=== PATIENT | male | born 1965 | race Caucasian/White ===

== ENCOUNTER → 2022-12-24 10:05 | Outpatient (BNVA) | payer MEDICAID, SELFPAY | PROVIDERS: PCP Family Medicine; Visit Provider Family Medicine | DX: R03.0 Elevated blood-pressure reading, without diagnosis of hypertension (principal) | CPT/HCPCS: 80053; 80061; 83036; 84439; 84443; 85007; 85025 ==

== ENCOUNTER 2023-02-11 10:07 | Day surgery (SDC) | payer MEDICAID, SELFPAY ==
[2023-02-11] VITALS (10 sets, daily range): BP systolic 125–165; BP diastolic 79–102; PULSE 78–129; RESP 14–16; TEMP 36.1–37.1; O2SAT 94–98
--- NOTE | 2023-02-11 10:50 | W.PM.OPSUD ---
Surgery/Procedure H&P Update DATE OF PROCEDURE: February 11, 2023 DATE H&P PERFORMED: 01/19/23 H&P UPDATE INFORMATION: I have reviewed H&P completed within last 30 days, I have examined patient prior to procedure and No changes to prior documentation PLANNED PROCEDURE: Operation Date: 02/11/23 13:45 Proposed Procedures p [id number] Laporoscopic left inguinal hernia with mesh K40.90(Left) - Juan José Valerio DO
[2023-02-11] MEDS: sodium chloride 0.9% 1,000 ML 30 ML IV (11:00)
[2023-02-11] MEDS: midazolam 1 mg/mL INJ 2 mL 2 MG IVP (11:15)
--- NOTE | 2023-02-11 11:32 | ANES.PREANE2 ---
Pre-Anesthetic Assessment Height/Weight: Height 1.83 m Weight 98.43 kg Temp Pulse Resp BP Pulse Ox O2 Del Method 98.7 F 82 16 158/102 98 Room Air 02/11/23 10:20 02/11/23 10:20 02/11/23 10:20 02/11/23 10:20 02/11/23 10:20 02/11/23 10:29 Operation Date: 02/11/23 13:45 Proposed Procedures p [id number] Laporoscopic left inguinal hernia with mesh K40.90(Left) - Juan José Valerio DO Familial anesthetic complications: None Was Beta Freedom taken within 24 hours: N/A Was Clonidine taken within 24 hours: N/A Last intake: Intake Last Liquid Date 02/10/23 Last Liquid Time 22:00 Last Solid Date 02/10/23 Last Solid Time 20:00 Social No alcohol and No tobacco Exam alert, oriented x 3, clear to auscultation bilaterally and regular rate & rhythm Airway Mallampati: Class II Dentition: false Anesthetic Plan ASA status: 2 Anesthesia: General Risk of > 500 ml blood loss (7ml/kg in children): No Medications/Allergies Home Medications Medication Instructions Recorded Confirmed Last Taken Type fluconazole 200 mg tablet 200 mg PO DAILY #42 tabs 01/04/23 02/10/23 02/10/23 Rx (Diflucan) Allergies Allergy/AdvReac Type Severity Reaction Status Date / Time egg Allergy Intermediate ADR-Vomitin Verified 02/10/23 13:56 g chicken derived AdvReac Intermediate ADR-Vomitin Verified 02/10/23 13:56 g Current Medications Generic Name Dose Route Start Last Admin Trade Name Freq PRN Reason Stop Dose Admin Sodium Chloride 1,000 mls @ 30 mls/hr 02/11/23 08:30 02/11/23 11:00 Sodium Chloride 0.9% IV 02/12/23 08:29 30 mls/hr .Q24H MEHDI Administration Midazolam HCl 2 mg 02/11/23 08:19 02/11/23 11:15 Midazolam 1 Mg/Ml Inj 2 Ml IVP 2 mg Q5M PRN Administration Preop Anxiety PFSH Anesthesia Medical History Chemical pneumonitis Surgical History History of tonsillectomy and adenoidectomy Family History Other CAD (coronary artery disease) Hypertension Lung disease Denies family history of Diabetes Clotting disorder Dementia Hyperlipidemia Psychiatric illness Chronic kidney disease (CKD) Anesthesia complication Bleeding disorder Cancer Stroke Social History Smoking and tobacco status: never smoked Alcohol intake: never Substance/Drug Use: never Lives independently: Yes Marital status: Number of children: 5 Current occupational status: employed Current occupation: [employer] Adrienne/L[employer] Day: Sabianism Special adrienne needs: No Agree to transfusion: Yes Data Anesthesia Cardiac Studies: No Data to Display
[2023-02-11] MEDS: ceFAZolin 2,000 MG in sodium chloride 0.9% (plus) 50 ML 100 MG IV (12:22)
[2023-02-11] MEDS: lidocaine-epi 2% 20 mL INJ INJECTION (12:51)
--- NOTE | 2023-02-11 13:04 | PM.OP ---
Operative Report Date of procedure: February 11, 2023 Pre-op diagnosis: Left inguinal hernia Post-op diagnosis: same Procedure done: Laparoscopic (TEPP)repair of left inguinal hernia with mesh Implants: Large left 3D max Bard mesh Specimens removed/disposition: None Surgeon: Dr. Juan José Valerio DO Anesthesia: General Estimated blood loss (mL): 5 Complications: None apparent Brief History: This very pleasant 57-year-old gentleman who presented to my office with a left inguinal hernia. Laparoscopic repair with mesh was indicated. The risk and benefits were explained and documented. Procedure: Patient was wheeled into the operative room and placed on the OR table in a supine position. Abdomen was inspected prepped and draped in usual sterile fashion. Time-out was performed and all present were in agreement. A 15 blade scalpel was used to make 1.2 centimeter incision infraumbilically. Combination of sharp and blunt dissection was performed down to the anterior rectus sheath which was opened sharply. The dissecting balloon was then inserted into the space of Retzius and blown up. We put the camera into the port and identified that we were in the correct space. I then placed 2 5 millimeter trocars suprapubically in the midline. I then used endokitners to bluntly dissect in the space of Retzius out laterally. An indirect inguinal hernia was identified on the left. Blunt dissection was performed to dissect down the hernia sac until the vas deferens dove medially. A large left inguinal mesh was then placed into the space of Retzius. The mesh was unrolled and tacked once medially at the pubic bone. The mesh laid out nicely over the spermatic cord. I watched the hernia sac remained in place as insufflation was removed. Incisions were closed with 4-0 Monocryl in a subcuticular interrupted fashion. Skin glue was applied. Patient tolerated the procedure well.
--- NOTE | 2023-02-11 14:05 | ANE.PACU2 ---
Inpatient post-anesthesia follow up: Airway intact: Yes Vital signs: Temperature 97.8 F Pulse Rate 88 Respiratory Rate 14 Blood Pressure 128/90 Pulse Oximetry 95 Oxygen Delivery Me thod Room Air Oxygen Flow Rate Fraction of Inspir ed Oxygen Hydration adequate: Yes Nausea and vomiting: No Pain level: 1 Mental status: Baseline
[2023-02-11] MEDS: ondansetron 2 mg/ML SDV 2 mL 4 MG IVP (14:10)
--- NOTE | 2023-02-11 14:11 | SUR.PHASEII ---
abdomen soft with mild tenderness.incisions intact no redness or drainage.
[2023-02-11] MEDS: HYDROcodone-acetaminophen 10-325 mg Tablet 1 TAB PO (15:22)
== END 2023-02-11 15:35 | disposition home or self-care (01) ==
PROVIDERS: PCP Family Medicine; Visit Provider Surgery
PROC: (CPT 49650; principal; 2023-02-11 13:35)
DX: K40.90 Unilateral inguinal hernia, without obstruction or gangrene, not specified as recurrent (principal)
CPT/HCPCS: 49505; 51702; C1781; J0131; J0330; J0690; J1100; J1200; J1885; J2250; J2405; J2704; J2710; J3010; J3490; J7030

== ENCOUNTER → 2023-03-23 13:26 | Outpatient (BNVA) | payer MEDICAID, SELFPAY | PROVIDERS: PCP Family Medicine; Visit Provider Family Medicine | DX: R50.9 Fever, unspecified (principal); J06.9 Acute upper respiratory infection, unspecified; Z20.822 Contact with and (suspected) exposure to COVID-19 | CPT/HCPCS: 80053; 85025; 85651; 86038; 86140; 86200; 86235; 86431; 87426 ==

== ENCOUNTER → 2023-03-30 09:00 | Outpatient (BNVA) | payer MEDICAID, SELFPAY | PROVIDERS: PCP Family Medicine; Visit Provider Family Medicine | DX: B19.20 Unspecified viral hepatitis C without hepatic coma; R74.8 Abnormal levels of other serum enzymes; Z72.51 High risk heterosexual behavior; D72.819 Decreased white blood cell count, unspecified | CPT/HCPCS: 80053; 80503; 82977; 85025; 86705; 86706; 86709; 86803; 87340; 87522; 87806 ==

== ENCOUNTER 2023-04-13 08:48 | Oncology outpatient (recurring) (ONCR) | payer MEDICAID, SELFPAY ==
[2023-04-13 10:25] LABS: Basophils # 0.1 10^3/uL (0.0-0.1); Basophils % 0.9 %; Eosinophils # 0.1 10^3/uL (0.0-0.8); Eosinophils % 1.1 %; Hematocrit 42.7 % (37-53); Lymphocytes # 3.4 10^3/uL (0.8-4.8); Lymphocytes % 60.1 %; Mean Corpuscular HGB Conc 32.6 g/dL (30-55); Mean Corpuscular Hemoglobin 30.6 pg (27-33); Mean Corpuscular Volume 94.1 fl (82-101); Mean Platelet Volume 9.5 fL (7.4-10.4); Monocytes # 0.4 10^3/uL (0.2-0.9); Monocytes % 6.7 %; Neutrophils # 1.76 10^3/uL (1.8-7.7); Nucleated Red Blood Cells % 0 %; Platelet Count 316 10^3/cmm (157-399); Red Blood Count 4.54 10^6/uL (3.85-5.65); Red Cell Distribution Width 11.8 % (12.1-15.1); White Blood Count 5.67 10^3/uL (3.29-11.43)
[2023-04-13 10:46] LABS: Alanine Aminotransferase 28 U/L (0-41); Albumin Level 4.3 g/dL (3.5-5.2); Alkaline Phosphatase 83 U/L (40-130); Anion Gap 12.6 (5-19); Aspartate Amino Transferase 20 U/L (0-40); Blood Urea Nitrogen 7 mg/dL (6-20); Calcium 9.2 mg/dL (8.5-10.5); Carbon Dioxide 29 mmol/L (22-29); Chloride 100 mmol/L (98-107); Globulin 2.9 g/dL (1.3-4.6); Glucose 100 mg/dL (65-115); Osmolality Calculated 282 mOsm/kg (285-295); Potassium 4.6 mmol/L (3.5-5.1); Sodium 137 mmol/L (136-145); Total Bilirubin 0.4 mg/dL (0.15-1.2); Total Protein 7.2 g/dL (6.6-8.7)
[2023-04-13 11:26] LABS: Erythrocyte Sedimentation Rate 11 mm/hr (0-10)
[2023-04-13 11:33] LABS: LAB Peripheral Smear Sent for Review
== END 2023-04-13 23:59 | disposition home or self-care (01) ==
LOC: ONCMED 08:49
PROVIDERS: Internal Medicine Medical Oncology; PCP Family Medicine; Visit Provider Family Medicine
DX: D72.829 Elevated white blood cell count, unspecified (principal); R74.8 Abnormal levels of other serum enzymes; R05.9 Cough, unspecified; D72.819 Decreased white blood cell count, unspecified; Z79.899 Other long term (current) drug therapy
CPT/HCPCS: 36415; 80053; 85025; 85651; 86140

== ENCOUNTER 2023-05-04 08:19 | Outpatient (CLI) | payer MEDICAID, SELFPAY ==
--- NOTE | 2023-05-04 08:45 | USR_ITS ---
PROCEDURE INFORMATION: Exam: US Abdomen Complete Exam date and time: 05/04/2023 8:30 AM Age: 57 years old Clinical indication: Abnormal findings; Abnormal lab test; Elevated liver enzymes; Additional info: Leukocytosis, cough, elevated liver enzymes TECHNIQUE: Imaging protocol: Real-time ultrasound of the abdomen with image documentation. Complete exam. COMPARISON: No relevant prior studies available. FINDINGS: Liver: Normal. No mass. Gallbladder: Normal. No gallstones. There is no gallbladder wall thickening. Biliary ducts: Normal. No stones. No dilation. Pancreas: Visualized pancreas is unremarkable. Right kidney: Normal. No mass. No hydronephrosis. Left kidney: Normal. No mass. No hydronephrosis. Spleen: Normal. No splenomegaly. Aorta: Normal. No aneurysm. Inferior vena cava: Normal. US/US abdomen complete* [id number] IMPRESSION: No acute findings.
== END 2023-05-04 08:20 | disposition home or self-care (01) ==
LOC: RAD 08:19
PROVIDERS: PCP Family Medicine; Visit Provider Nurse Practitioner Family
DX: D72.829 Elevated white blood cell count, unspecified (principal); R74.8 Abnormal levels of other serum enzymes; R05.9 Cough, unspecified
CPT/HCPCS: 76700

== ENCOUNTER → 2023-05-24 11:15 | Outpatient (BNVA) | payer MEDICAID, SELFPAY | PROVIDERS: PCP Family Medicine; Visit Provider Family Medicine | DX: A77.41 Ehrlichiosis chaffeensis [E. chaffeensis] (principal) | CPT/HCPCS: 80053; 82785; 86003 ==

== ENCOUNTER 2023-07-12 14:33 | Oncology outpatient (recurring) (ONCR) | payer MEDICAID, SELFPAY ==
[2023-07-12 13:31] VITALS: BP 152/90; PULSE 72; RESP 18; TEMP 36.6; O2SAT 97
[2023-07-12 13:55] LABS: Basophils # 0.1 10^3/uL (0.0-0.1); Basophils % 0.7 %; Eosinophils # 0.5 10^3/uL (0.0-0.8); Eosinophils % 5.5 %; Hematocrit 43.9 % (37-53); Lymphocytes # 3.1 10^3/uL (0.8-4.8); Lymphocytes % 34.1 %; Mean Corpuscular HGB Conc 33.3 g/dL (30-55); Mean Corpuscular Hemoglobin 30.8 pg (27-33); Mean Corpuscular Volume 92.6 fl (82-101); Mean Platelet Volume 9.9 fL (7.4-10.4); Monocytes # 0.5 10^3/uL (0.2-0.9); Monocytes % 5.2 %; Neutrophils # 4.96 10^3/uL (1.8-7.7); Neutrophils % 54.2 %; Nucleated Red Blood Cells % 0 %; Platelet Count 330 10^3/cmm (157-399); Red Blood Count 4.74 10^6/uL (3.85-5.65); Red Cell Distribution Width 11.5 % (12.1-15.1); White Blood Count 9.15 10^3/uL (3.29-11.43)
[2023-07-12 14:19] LABS: Alanine Aminotransferase 22 U/L (0-41); Albumin Level 4.2 g/dL (3.5-5.2); Alkaline Phosphatase 83 U/L (40-130); Anion Gap 13.9 (5-19); Aspartate Amino Transferase 40 U/L (0-40); Blood Urea Nitrogen 10 mg/dL (6-20); C Reactive Protein 3.2 mg/L (0.0-4.9); Calcium 9.6 mg/dL (8.5-10.5); Carbon Dioxide 28 mmol/L (22-29); Chloride 103 mmol/L (98-107); Globulin 3.3 g/dL (1.3-4.6); Glomerular Filtration Rate 116.7 mL/min (90-130); Glucose 87 mg/dL (65-115); Osmolality Calculated 288 mOsm/kg (285-295); Potassium 4.9 mmol/L (3.5-5.1); Sodium 140 mmol/L (136-145); Total Bilirubin 0.2 mg/dL (0.15-1.2); Total Protein 7.5 g/dL (6.6-8.7)
[2023-07-12 15:07] LABS: Erythrocyte Sedimentation Rate 13 mm/hr (0-10)
== END 2023-07-14 23:59 | disposition home or self-care (01) ==
PROVIDERS: Internal Medicine Medical Oncology; PCP Family Medicine; Visit Provider Family Medicine
DX: D72.819 Decreased white blood cell count, unspecified (principal); D69.6 Thrombocytopenia, unspecified
CPT/HCPCS: 36415; 80053; 85025; 85651; 86140

== ENCOUNTER → 2023-09-27 09:09 | Outpatient (BNVA) | payer MEDICAID, SELFPAY | PROVIDERS: PCP Family Medicine; Visit Provider Family Medicine | DX: E88.09 Other disorders of plasma-protein metabolism, not elsewhere classified (principal); J32.9 Chronic sinusitis, unspecified | CPT/HCPCS: 80053; 83520; 85025; 86008 ==

== ENCOUNTER → 2024-04-17 13:43 | Outpatient (BNVA) | payer MEDICAID, SELFPAY | PROVIDERS: PCP Family Medicine; Visit Provider Podiatrist Foot & Ankle Surgery | DX: M79.672 Pain in left foot (principal); M79.89 Other specified soft tissue disorders | CPT/HCPCS: 73630 ==

== ENCOUNTER 2024-05-10 15:08 | Outpatient (CLI) | payer MEDICAID, SELFPAY ==
--- NOTE | 2024-05-10 16:45 | MRR_ITS ---
PROCEDURE INFORMATION: Exam: MR Left Lower Extremity Without Contrast; Forefoot Exam date and time: 05/10/2024 4:47 PM Age: 58 years old Clinical indication: Swelling, leg or foot; Patient HX: Palpable mass on the medial aspect of base of great toe; Additional info: M79.89 - other specified soft tissue disorders TECHNIQUE: Imaging protocol: MR of the left foot without contrast. Exam focused on the forefoot. COMPARISON: CR XR foot LT min 3V* [id number] 04/17/2024 1:51 PM FINDINGS: Bones/joints: There is a small 1st MTP joint effusion. The sesamoid bones are appropriate in signal. No osteochondral defect 1st MTP joint. No fracture or dislocation. LIGAMENTS: Collateral ligaments of digits: Unremarkable. No evidence of tear. TENDONS: Flexor tendons of foot: Unremarkable. No evidence of tear. Extensor tendons of foot: Unremarkable. No evidence of tear. Soft tissues: There is a tear of the sesamoid phalangeal ligaments/plantar plate with proximal migration of the sesamoid bones best seen sagittal series 1201 image 24. There is thickening and edema of the distal abductor hallucis tendon at the insertion of the medial sesamoid bone compatible with tendinopathy with mild tenosynovitis. There is abundant edema/fluid in the fascial planes and overlying subcutaneous fat adjacent to the abductor hallucis tendon. There is edema in the distal abductor hallucis muscle. There is a 8 x 5 x 8 mm fluid collection medial to the 1st metatarsal head that does not connect with the 1st MTP joint and may reflect a small bursal fluid collection or ganglion cyst adjacent to the insertion of the abductor hallucis tendon. MR/MR foot LT wo con* [id number] IMPRESSION: 1. There is thickening and edema of the distal abductor hallucis tendon at the insertion of the medial sesamoid bone compatible with tendinopathy with mild tenosynovitis. 2. There is a 8 x 5 x 8 mm fluid collection medial to the 1st metatarsal head that does not connect with the 1st MTP joint and may reflect a small bursal fluid collection or ganglion cyst adjacent to the insertion of the abductor hallucis tendon.
== END 2024-05-10 15:09 | disposition home or self-care (01) ==
LOC: RAD 15:09
PROVIDERS: PCP Family Medicine; Visit Provider Podiatrist Foot & Ankle Surgery
DX: M65.272 Calcific tendinitis, left ankle and foot (principal); M25.475 Effusion, left foot; M79.89 Other specified soft tissue disorders
CPT/HCPCS: 73718

== ENCOUNTER → 2024-08-14 09:35 | Outpatient (BNVA) | payer OTHER, MEDICAID, SELFPAY | PROVIDERS: PCP Family Medicine; Visit Provider Family Medicine | DX: B35.1 Tinea unguium (principal) | CPT/HCPCS: 80053 ==

== ENCOUNTER → 2024-09-14 13:31 | Outpatient (BNVA) | payer OTHER, MEDICAID, SELFPAY | PROVIDERS: PCP Family Medicine; Visit Provider Family Medicine | DX: B35.1 Tinea unguium (principal) | CPT/HCPCS: 80053 ==